=== PATIENT | male | born 1955 | race Caucasian/White ===

== ENCOUNTER 2018-06-30 13:17 | Outpatient (CLI) | payer BC ==
[~2018-06-30 13:17] MED LIST: Gadobenate Dimeglumine 529 MG/1 ML (20ML VIAL) ONE
[2018-06-30 14:14] LABS: Estimated GFR-MDRD - POC Greater than 90
--- NOTE | 2018-06-30 15:14 | MRI ---
MRI BRAIN WITH AND WITHOUT CONTRAST: CLINICALLY INDICATIONS: History of prior brain surgery, related to tumor resection. Followup. COMPARISON: 05/06/2016 FINDINGS: Extensive acuña artifact of the posterior fossa is again seen with subsequent limitation to visualiza tion of regional anatomy. No new ventriculomegaly. Stable gliotic tract of the right frontal lobe t raversing to the lateral ventricle and through the right basal ganglia and thalamus, indicating prior catheter tract. No acute territorial infarction. Redemonstration of post surgical distortion of th e posterior fossa contents. No new enhancing intraaxial lesion is evident. There is a partially emp ty sella. There is a partially imaged retention cyst of the posterior right maxillary sinus. 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 IMPRESSION: Stable postoperative brain MRI. POS: OFF
== END 2018-06-30 13:18 | disposition home or self-care (01) ==
LOC: TBSIIMAG 13:17
PROVIDERS: ATTEND Neurological Surgery
DX: C71.9 Malignant neoplasm of brain, unspecified (principal); Z98.890 Other specified postprocedural states
CPT/HCPCS: 70553; 82565; A9577